=== PATIENT | female | born 1990 | race Caucasian/White ===

== ENCOUNTER 2016-10-02 20:14 | Emergency (ER) | payer SELFPAY ==
[~2016-10-02] VITALS: Ht 152.4 cm; Wt 46.3 kg
[~2016-10-02 20:14] MED LIST: ANAPROX DS550 M1 PO; ASCORBIC ACID500 M3 PO; ATIVAN1 MG PO; CELEBREX200 MG PO; CIPRO500 MG PO; DOCUSATE SODIU100 MG PO; ENDOCET 5-3251 EACH PO; ESOMEPRAZOLE ST40 MG PO; FERROUS SULFAT325 MG PO; FLEXERIL10 MG PO; FLORASTOR250 MG PO; HYDROCODON-ACE1 EAC7 PO; IBUPROFEN800 MG PO; KEFLEX500 MG PO; MACROBID100 MG PO; MOTRIN600 MG PO; Motrin PO; NAPROSYN500 MG PO; NO HOME MED; OXYCODONE HCL5 M1 PO; PANTOPRAZOLE SO40 MG PO; PERCOCET 5/31 TABLET PO; PRENATAL CAPSU1 EACH PO; PRENATAL TABLE1 EAC3 PO; PRENATAL VITAM1 EAC3 PO; PYRIDIUM100 MG PO; Percocet 5/325,Endoc PO; Phenergan PO; SLEEPING AID PO; TYLENOL REGULA325 MG PO; TYLENOL WITH C1 EACH PO; VICODIN 5-3001 EACH PO; VITAMIN B-625 MG PO; VITAMIN C500 M1 PO; ZOFRAN ODT4 MG PO; ZOFRAN4 MG PO; Zovirax PO; [UNRECOGNIZED DRUG - OTHER]
[2016-10-02 20:51] LABS: HEMATOCRIT 44.3 % (36.0-46.0); MCH 31.5 PG (29.0-34.0); MCHC 35.7 G/DL (30.0-36.0); MCV 88.4 FL (83-99); MEAN PLAT.VOLUME 10.7 uM^3 (9.5-12.4); PLATELET COUNT 209 K/uL (156-360); RBC DIS.WIDTH-CV 12.1 % (11.8-14.6); RBC DIS.WIDTH-SD 38.5 % (39-53); RED BLOOD COUNT 5.01 M/uL (3.80-5.20); WHITE BLOOD COUNT 7.6 K/uL (4.1-10.2)
[2016-10-02 20:57] LABS: CHLORIDE 112 mEq/L (99-109); POTASSIUM 3.8 mEq/L (3.7-5.4); SODIUM 147 mEq/L (136-147)
[2016-10-02 20:59] LABS: GLUCOSE 96 mg/dL (70-99)
[2016-10-02 21:00] LABS: ANION GAP 10 MEQ/L (2-14)
[2016-10-02 21:01] LABS: TOTAL BILIRUBIN 0.7 mg/dL (0.0-1.0)
[2016-10-02 21:02] LABS: SERUM ETHYL ALCOHOL 226 mg/dL
[2016-10-02 21:03] LABS: ALKALINE PHOSPHATASE 59 IU/L (3-129); GFR ESTIMATE (CALCULATED) > 59 mL/min/
[2016-10-02 21:04] LABS: UREA NITROGEN (BUN) 7 mg/dL (9-23)
[2016-10-02 21:11] LABS: QUANTITATIVE HCG < 4.0 MIU/ML
[2016-10-02 23:39] LABS: ADD MIUA? NO; BILIRUBIN NEGATIVE; BLOOD NEGATIVE; COLOR YELLOW ((YELLOW)); GLUCOSE (STRIP) NEGATIVE; KETONES NEGATIVE; LEUKOCYTES NEGATIVE; NITRITE NEGATIVE; PH, URINE 6.5 (5-8); PROTEIN (STRIP) NEGATIVE; SPECIFIC GRAVITY 1.013 (1.000-1.030); UCUL ADDED? NO; UROBILINOGEN 0.2 MG/DL (0.2-1.0)
[2016-10-02 23:49] LABS: COCAINE NEGATIVE (150 ng/mL); METHAMPHETAMINE NEGATIVE (500 ng/mL); OPIATES (MORPHINE) NEGATIVE (100 ng/mL); PHENCYCLIDINE NEGATIVE (25 ng/mL); THC CANNABINOIDS PRESUMPTIVE POSITIVE (50 ng/mL)
[2016-10-02 23:50] LABS: EOSINOPHIL (%) 6.7 % (0-5); EOSINOPHIL COUNT 0.5 K/uL (0-0.3); IMMATURE GRANULOCYTE (%) 0.3 % (0.0-0.7); LYMPHOCYTE COUNT 3.7 K/uL (1.0-2.8); MONOCYTE (%) 3.5 % (3-12); MONOCYTE COUNT 0.3 K/uL (0-0.8); NEUTROPHIL (%) 40.4 % (45-76); NEUTROPHIL COUNT 3.1 K/uL (1.8-6.4)
[2016-10-02 23:50] LABS: ADD MEDTOX COMMENT Y; AMPHETAMINE NEGATIVE (500 ng/mL); BARBITURATES NEGATIVE (200 ng/mL); BENZODIAZEPINES NEGATIVE (150 ng/mL); INTERNAL CONTROLS VALID? YES; METHADONE NEGATIVE (200 ng/mL); OXYCODONE PRESUMPTIVE POSITIVE (100 ng/mL); PROPOXYPHENE NEGATIVE (300 ng/mL); TRICYCLIC ANTIDEPRESSANTS NEGATIVE (300 ng/mL)
[2016-10-03 04:16] VITALS: BP 111/63
== END 2016-10-03 04:39 | disposition home or self-care (01) ==
LOC: EME 20:14
DX: F32.9 Major depressive disorder, single episode, unspecified (principal); F10.129 Alcohol abuse with intoxication, unspecified; Y90.7 Blood alcohol level of 200-239 mg/100 ml; S39.91XA Unspecified injury of abdomen, initial encounter; R10.9 Unspecified abdominal pain; R45.850 Homicidal ideations; Y04.8XXA Assault by other bodily force, initial encounter; Y07.03 Male partner, perpetrator of maltreatment and neglect; F17.200 Nicotine dependence, unspecified, uncomplicated
CPT/HCPCS: 74177; 80053; 81003; 84702; 84999; 85025; 85027; 86900; 86901; 90837; 99281; 99285; G0480; J1885; J2270; J2405; J7030

== ENCOUNTER 2016-12-16 21:31 | Emergency (ER) | payer SELFPAY ==
[~2016-12-16] VITALS: Ht 152.4 cm; Wt 44.3 kg
[2016-12-17] MEDS ORDERED: ZOFRAN4 MG PO (01:18)
[2016-12-17] MEDS ORDERED: NORCO 5/3251 TABLET PO (01:18)
[2016-12-17 01:45] VITALS: BP 109/69
== END 2016-12-17 01:49 | disposition home or self-care (01) ==
LOC: EME 21:31
DX: S06.0X9A Concussion with loss of consciousness of unspecified duration, initial encounter (principal); S01.81XA Laceration without foreign body of other part of head, initial encounter; W22.09XA Striking against other stationary object, initial encounter; Y92.009 Unspecified place in unspecified non-institutional (private) residence as the place of occurrence of the external cause; Y93.02 Activity, running; F17.200 Nicotine dependence, unspecified, uncomplicated; J45.909 Unspecified asthma, uncomplicated; Z91.02 Food additives allergy status; Z91.012 Allergy to eggs; Z91.030 Bee allergy status; Z91.048 Other nonmedicinal substance allergy status
CPT/HCPCS: 70450; 70486; 72125; 99281; 99284

== ENCOUNTER 2017-06-17 18:27 | Emergency (ER) | payer SELFPAY ==
[~2017-06-17] VITALS: Ht 152.4 cm; Wt 43.2 kg
[~2017-06-17 18:27] MED LIST changes: +NORCO 5/3251 TABLET PO
[2017-06-17 19:49] LABS: HEMATOCRIT 43.3 % (36.0-46.0); MCHC 35.8 G/DL (30.0-36.0); MCV 89.3 FL (83-99); MEAN PLAT.VOLUME 10.6 uM^3 (9.5-12.4); PLATELET COUNT 216 K/uL (156-360); RBC DIS.WIDTH-CV 11.6 % (11.8-14.6); RBC DIS.WIDTH-SD 37.4 % (39-53); RED BLOOD COUNT 4.85 M/uL (3.80-5.20); WHITE BLOOD COUNT 6.5 K/uL (4.1-10.2)
[2017-06-17 20:01] LABS: CHLORIDE 104 mEq/L (99-109); POTASSIUM 3.9 mEq/L (3.7-5.4); SODIUM 138 mEq/L (136-147)
[2017-06-17 20:02] LABS: GLUCOSE 96 mg/dL (70-99)
[2017-06-17 20:04] LABS: ANION GAP 12 MEQ/L (2-14)
[2017-06-17 20:06] LABS: GFR ESTIMATE (CALCULATED) > 59 mL/min/
[2017-06-17 20:07] LABS: UREA NITROGEN (BUN) 13 mg/dL (9-23)
[2017-06-17 20:14] LABS: TROP-I INTERPRETATION NEGATIVE; TROPONIN-I < 0.01 ng/mL (0.0-0.30)
[2017-06-17 22:00] VITALS: BP 109/72
== END 2017-06-17 22:06 | disposition home or self-care (01) ==
LOC: EME 18:27
DX: R07.89 Other chest pain (principal); F11.90 Opioid use, unspecified, uncomplicated; F41.9 Anxiety disorder, unspecified; F32.9 Major depressive disorder, single episode, unspecified; J45.909 Unspecified asthma, uncomplicated; Z90.49 Acquired absence of other specified parts of digestive tract; F17.200 Nicotine dependence, unspecified, uncomplicated
CPT/HCPCS: 71020; 80048; 84484; 85027; 93005; 99281; 99284

== ENCOUNTER 2017-09-12 23:49 | Emergency (ER) | payer OTHER ==
[~2017-09-12] VITALS: Ht 160 cm; Wt 43.6 kg
[2017-09-13] MEDS ORDERED: ULTRAM50 MG PO (03:40)
[2017-09-13 03:54] VITALS: BP 126/84
== END 2017-09-13 03:55 | disposition home or self-care (01) ==
LOC: EME 23:49
DX: S40.012A Contusion of left shoulder, initial encounter (principal); Y04.8XXA Assault by other bodily force, initial encounter; Z72.89 Other problems related to lifestyle; N83.209 Unspecified ovarian cyst, unspecified side; F41.9 Anxiety disorder, unspecified; F32.9 Major depressive disorder, single episode, unspecified; J45.909 Unspecified asthma, uncomplicated; F17.200 Nicotine dependence, unspecified, uncomplicated
CPT/HCPCS: 71046; 73030; 99281; 99284

== ENCOUNTER 2018-02-05 14:16 | Emergency (ER) | payer OTHER ==
[~2018-02-05] VITALS: Ht 154.9 cm; Wt 54.5 kg
[~2018-02-05 14:16] MED LIST changes: +ULTRAM50 MG PO
[2018-02-05 14:52] LABS: BASOPHIL (%) 0.7 % (0-1); BASOPHIL COUNT 0.1 K/uL (0-0.1); EOSINOPHIL (%) 5.1 % (0-5); EOSINOPHIL COUNT 0.4 K/uL (0-0.3); HEMATOCRIT 50.2 % (36.0-46.0); IMMATURE GRANULOCYTE (%) 0.3 % (0.0-0.7); LYMPHOCYTE (%) 36.1 % (15-42); LYMPHOCYTE COUNT 2.6 K/uL (1.0-2.8); MCH 32.7 PG (29.0-34.0); MCHC 35.9 G/DL (30.0-36.0); MCV 91.1 FL (83-99); MONOCYTE (%) 8.1 % (3-12); MONOCYTE COUNT 0.6 K/uL (0-0.8); NEUTROPHIL (%) 49.7 % (45-76); NEUTROPHIL COUNT 3.6 K/uL (1.8-6.4); PLATELET COUNT 247 K/uL (156-360); RBC DIS.WIDTH-SD 40.1 % (39-53); RED BLOOD COUNT 5.51 M/uL (3.80-5.20); WHITE BLOOD COUNT 7.3 K/uL (4.1-10.2)
[2018-02-05 14:56] LABS: INTER. NORMALIZED RATIO 1.1
[2018-02-05 14:58] LABS: D-DIMER ELISA < 150.00 ng/mLDDU (<230)
[2018-02-05 14:59] LABS: PTT 32.7 SEC (25-37)
[2018-02-05 15:01] LABS: CHLORIDE 102 mEq/L (99-109); POTASSIUM 3.9 mEq/L (3.7-5.4); SODIUM 142 mEq/L (136-147)
[2018-02-05 15:02] LABS: GLUCOSE 80 mg/dL (70-99)
[2018-02-05 15:06] LABS: CREATININE 0.9 mg/dL (0.6-1.3); GFR ESTIMATE (CALCULATED) > 59 mL/min/
[2018-02-05 15:07] LABS: UREA NITROGEN (BUN) 10 mg/dL (9-23)
[2018-02-05 15:10] LABS: TROP-I INTERPRETATION NEGATIVE; TROPONIN-I < 0.01 ng/mL (0.0-0.30)
[2018-02-05 16:18] LABS: QUANTITATIVE HCG < 4.0 MIU/ML
[2018-02-05] MEDS ORDERED: ZITHROMAX Z-PA250 MG PO (16:29)
[2018-02-05] MEDS ORDERED: MOTRIN800 MG PO (16:29)
[2018-02-05 16:47] VITALS: BP 109/85
== END 2018-02-05 16:48 | disposition home or self-care (01) ==
LOC: EME 14:16
PROVIDERS: Emergency Medicine
DX: R07.89 Other chest pain (principal); J40 Bronchitis, not specified as acute or chronic; R42 Dizziness and giddiness; R55 Syncope and collapse; R11.10 Vomiting, unspecified; J98.11 Atelectasis; Z90.49 Acquired absence of other specified parts of digestive tract; F17.200 Nicotine dependence, unspecified, uncomplicated
CPT/HCPCS: 71045; 71275; 80048; 84484; 84702; 85025; 85379; 85610; 85730; 93005; 99281; 99285; J1885; J7030

== ENCOUNTER 2018-04-28 20:36 | Emergency (ER) | payer OTHER ==
[~2018-04-28] VITALS: Ht 165.1 cm; Wt 46.0 kg
[~2018-04-28 20:36] MED LIST changes: +MOTRIN800 MG PO; +ZITHROMAX Z-PA250 MG PO
[2018-04-28 21:53] LABS: HEMATOCRIT 38.2 % (36.0-46.0); HEMOGLOBIN 13.7 G/DL (11.9-15.5); MCH 31.9 PG (29.0-34.0); MCHC 35.9 G/DL (30.0-36.0); MCV 88.8 FL (83-99); PLATELET COUNT 236 K/uL (156-360); RBC DIS.WIDTH-CV 11.5 % (11.8-14.6); RBC DIS.WIDTH-SD 37.1 % (39-53); WHITE BLOOD COUNT 8.5 K/uL (4.1-10.2)
[2018-04-28 22:53] LABS: APPEARANCE CLOUDY ((CLEAR)); BILIRUBIN NEGATIVE; BLOOD NEGATIVE; COLOR YELLOW ((YELLOW)); GLUCOSE (STRIP) NEGATIVE; KETONES NEGATIVE; LEUKOCYTES NEGATIVE; NITRITE NEGATIVE; PROTEIN (STRIP) NEGATIVE; SPECIFIC GRAVITY 1.018 (1.000-1.030); UROBILINOGEN 0.2 MG/DL (0.2-1.0)
[2018-04-28 23:07] LABS: BACTERIA NONE SEEN /HPF; EPITHELIAL CELLS RARE /HPF; MUCUS NONE SEEN /LPF; UCUL ADDED? YES
[2018-04-29] MEDS ORDERED: NORCO 7.5/321 TABLET PO (01:00)
[2018-04-29] MEDS ORDERED: MOTRIN800 MG PO (01:00)
[2018-04-29 01:17] VITALS: BP 138/90
== END 2018-04-29 01:20 | disposition home or self-care (01) ==
LOC: EME 20:36
DX: O03.4 Incomplete spontaneous abortion without complication (principal); J45.909 Unspecified asthma, uncomplicated; F32.9 Major depressive disorder, single episode, unspecified; F41.9 Anxiety disorder, unspecified; Z90.49 Acquired absence of other specified parts of digestive tract; F17.200 Nicotine dependence, unspecified, uncomplicated
CPT/HCPCS: 76801; 81003; 84702; 85027; 86850; 86900; 86901; 87086; 99281; 99285

== ENCOUNTER 2018-04-29 19:04 | Emergency (ER) | payer OTHER ==
[~2018-04-29] VITALS: Ht 152.4 cm; Wt 43.7 kg
[~2018-04-29 19:04] MED LIST changes: +NORCO 7.5/321 TABLET PO
[2018-04-29 20:06] VITALS: BP 97/66
[2018-04-29 20:53] LABS: HEMATOCRIT 41.3 % (36.0-46.0); HEMOGLOBIN 14.6 G/DL (11.9-15.5); MCH 31.8 PG (29.0-34.0); MCHC 35.4 G/DL (30.0-36.0); PLATELET COUNT 242 K/uL (156-360); RBC DIS.WIDTH-CV 11.5 % (11.8-14.6); RBC DIS.WIDTH-SD 37.5 % (39-53); RED BLOOD COUNT 4.59 M/uL (3.80-5.20); WHITE BLOOD COUNT 9.9 K/uL (4.1-10.2)
[2018-04-29 21:02] LABS: CHLORIDE 105 mEq/L (99-109); POTASSIUM 3.8 mEq/L (3.7-5.4); SODIUM 139 mEq/L (136-147)
[2018-04-29 21:04] LABS: GLUCOSE 98 mg/dL (70-99)
[2018-04-29 21:08] LABS: CREATININE 0.7 mg/dL (0.6-1.3); GFR ESTIMATE (CALCULATED) > 59 mL/min/
[2018-04-29 21:09] LABS: UREA NITROGEN (BUN) 11 mg/dL (9-23)
== END 2018-04-29 21:00 | disposition left against medical advice (07) ==
LOC: EME → EDBD 19:04 → EME 21:00
PROVIDERS: Physician Assistant
DX: O03.4 Incomplete spontaneous abortion without complication (principal); Z90.49 Acquired absence of other specified parts of digestive tract; F17.200 Nicotine dependence, unspecified, uncomplicated
CPT/HCPCS: 76801; 80048; 85027; 86850; 86900; 86901; J2405; J3010; J7030